=== PATIENT | male | born 1990 | race Caucasian/White ===

== ENCOUNTER → 2016-04-29 | Outpatient (CLI) | payer BC, OTHER ==
[~2016-04-29] MED LIST: IBUP-1050 PO; MULT-506 PO
--- NOTE | 2016-04-29 15:26 | DIAGNOSTIC IMAGING REPORT ---
LUMBAR SPINE MIN 4 VIEWS CLINICAL HISTORY: Low back pain. COMPARISON STUDY: No previous studies for comparison. FINDINGS: There is a transitional vertebra present. No fractures or subluxations are visualized. There are degenerative changes most pronounced at the thoracoabdominal junction. There is a mild S-shaped spinal curvature. IMPRESSION: 1. No fractures or subluxations identified 2. Mild degenerative changes 3. Transitional vertebra Electronically signed by: Reece Suárez M.D. 04/29/2016 3:24 PM Dictated Date/Time: 04/29/2016 3:23 PM
== END | disposition home or self-care (01) ==
LOC: C.RDSM 13:20
PROVIDERS: ATTEND Family Medicine
DX: M54.5 Low back pain (principal); M43.8X6 Other specified deforming dorsopathies, lumbar region

== ENCOUNTER 2016-09-29 17:16 | Emergency (ER) | payer BC ==
[~2016-09-29] VITALS: Ht 175.3 cm; Wt 88.3 kg
[2016-09-29 17:19] VITALS: Ht 175.3 cm; Wt 88.3 kg
[2016-09-29] MEDS ORDERED: SODIUM CHLORIDE 0.9% 1000ML 1,000 ML IV STA (17:32)
[2016-09-29] MEDS ORDERED: KETOROLAC TROMETHAMINE 30 MG/ML VIAL IV STA (17:32)
--- NOTE | 2016-09-29 17:32 | EMERGENCY ROOM VISIT NOTE ---
History Report prepared by Rd: Elian Blevins Under the Supervision of: Dr. Norman Marshall M.D. First contact with patient: 17:22 Chief Complaint: ILLNESS Stated Complaint: FEVER,CHILLS,SOB,[place] History of Present Illness The patient is a 25 year old male who presents to the Emergency Room with complaints of intermittent fevers for the past three days. The patient started to feel fatigued one week ago and has been sleeping more than usual. Three days ago the fevers started as well as chills, shortness of breath, and cervical lymphadenopathy. He denies sore throat, cough, or unusual rashes. The patient is able to swallow his secretions. The patient has never had mono before. He has no significant past medical history. Source of History: patient Onset: three days ago Position: other (global) Quality: other (febrile) Timing: intermittent Associated Symptoms: + chills, + SOB, + fatigue, + lymphadenopathy, No sorethroat, No cough, No rash Review of Systems See HPI for pertinent positives & negatives. A total of 10 systems reviewed and were otherwise negative. Past Medical & Surgical Medical Problems: (1) No known health problems Family History Diabetes mellitus Hypertension Social History Smoking Status: Never Smoker Occupation Status: employed Current/Historical Medications Scheduled Ibuprofen (Advil), 400 MG PO BID Multivitamin (Multivitamin), 1 TAB PO DAILY Allergies Coded Allergies: No Known Allergies (Unverified , 09/29/16) Physical Exam Vital Signs Date Time Temp Pulse Resp B/P (MAP) Pulse Ox O2 Delivery O2 Flow Rate FiO2 09/29/16 19:29 37.5 83 19 120/73 97 09/29/16 19:19 37.5 09/29/16 19:16 83 19 97 09/29/16 19:01 120/73 09/29/16 18:46 86 21 98 09/29/16 18:31 112/68 09/29/16 18:30 86 09/29/16 18:27 95 Room Air 09/29/16 18:26 129/68 09/29/16 17:19 38.9 118 20 138/84 96 Room Air Physical Exam GENERAL: Patient is a healthy-appearing well-nourished male HEAD: Normocephalic atraumatic EYES: Ocular movements intact pupils equal and react to light OROPHARYNX Patient is able to swallow his own saliva. Mild bilateral tonsillar swelling. NECK: Supple no nuchal rigidity. No evidence of meningitis or encephalitis. CHEST: Good equal expansion LUNGS: Clear and equal to auscultation CARDIAC: Normal S1 and S2 ABDOMEN: Soft nontender no guarding BACK: No CVA tenderness EXTREMITIES: No pain upon palpation normal muscle strength in all groups no clubbing cyanosis or edema NEURO: Patient is following commands and answering questions appropriately. Alert and oriented x3 Cranial Nerves 2-12 grossly intact Medical Decision & Procedures ER Provider Diagnostic Interpretation: X-ray results as stated below per interpretation by me and the radiologist: CHEST ONE VIEW PORTABLE HISTORY: Pt c/o fever COMPARISON: None. FINDINGS: The lungs are clear. Cardiac silhouette is normal in size. No pleural effusions. No pneumothorax. IMPRESSION: No acute process. Electronically signed by: Keven Darden M.D. 09/29/2016 6:00 PM Dictated Date/Time: 09/29/2016 5:59 PM Laboratory Results 09/29/16 17:59 Red Blood Count 5.10, Mean Corpuscular Volume 85.9, Mean Corpuscular Hemoglobin 29.6, Mean Corpuscular Hemoglobin Concent 34.5, Mean Platelet Volume 9.8, Neutrophils (%) (Auto) 66.6, Lymphocytes (%) (Auto) 22.5, Monocytes (%) (Auto) 8.7, Eosinophils (%) (Auto) 0.8, Basophils (%) (Auto) 1.4, Neutrophils # (Auto) 3.44, Lymphocytes # (Auto) 1.16, Monocytes # (Auto) 0.45, Eosinophils # (Auto) 0.04, Basophils # (Auto) 0.07 09/29/16 17:59 Test 09/29/16 17:50 09/29/16 17:59 09/29/16 18:10 Influenza Type A (RT-PCR) Neg for Influ A (NEG) Influenza Type A Antigen Neg for Influ A (NEG) Influenza Type B Antigen Neg for Influ B (NEG) Influenza Type B (RT-PCR) Neg for Influ B (NEG) White Blood Count 5.16 K/uL (4.8-10.8) Red Blood Count 5.10 M/uL (4.7-6.1) Hemoglobin 15.1 g/dL (14.0-18.0) Hematocrit 43.8 % (42-52) Mean Corpuscular Volume 85.9 fL (80-100) Mean Corpuscular Hemoglobin 29.6 pg (25-34) Mean Corpuscular Hemoglobin Concent 34.5 g/dl (32-36) Platelet Count 143 K/uL (130-400) Mean Platelet Volume 9.8 fL (7.4-10.4) Neutrophils (%) (Auto) 66.6 % Lymphocytes (%) (Auto) 22.5 % Monocytes (%) (Auto) 8.7 % Eosinophils (%) (Auto) 0.8 % Basophils (%) (Auto) 1.4 % Neutrophils # (Auto) 3.44 K/uL (1.4-6.5) Lymphocytes # (Auto) 1.16 K/uL (1.2-3.4) Monocytes # (Auto) 0.45 K/uL (0.11-0.59) Eosinophils # (Auto) 0.04 K/uL (0-0.5) Basophils # (Auto) 0.07 K/uL (0-0.2) RDW Standard Deviation 38.8 fL (36.4-46.3) RDW Coefficient of Variation 12.2 % (11.5-14.5) Immature Granulocyte % (Auto) 0.0 % Immature Granulocyte # (Auto) 0.00 K/uL (0.00-0.02) Anion Gap 9.0 mmol/L (3-11) Est Creatinine Clear Calc Drug Dose 125.8 ml/min Estimated GFR () 123.5 Estimated GFR (Non- 106.6 BUN/Creatinine Ratio 12.5 (10-20) Calcium Level 8.4 mg/dl (8.5-10.1) Total Bilirubin 0.4 mg/dl (0.2-1) Direct Bilirubin 0.1 mg/dl (0-0.2) Aspartate Amino Transf (AST/SGOT) 21 U/L (15-37) Alanine Aminotransferase (ALT/SGPT) 37 U/L (12-78) Alkaline Phosphatase 76 U/L (45-117) Total Protein 6.8 gm/dl (6.4-8.2) Albumin 3.4 gm/dl (3.4-5.0) Lyme Disease IgG Antibody NEG (NEG) Lyme Disease IgM Antibody NEG (NEG) Monoscreen POS (NEG) Urine Color DK YELLOW Urine Appearance CLEAR (CLEAR) Urine pH 6.0 (4.5-7.5) Urine Specific [place] 1.032 (1.000-1.030) Urine Protein 1+ (NEG) Urine Glucose (UA) NEG (NEG) Urine Ketones TRACE (NEG) Urine Occult Blood NEG (NEG) Urine Nitrite NEG (NEG) Urine Bilirubin NEG (NEG) Urine Urobilinogen NEG (NEG) Urine Leukocyte Esterase NEG (NEG) Urine WBC (Auto) 1-5 /hpf (0-5) Urine RBC (Auto) 0-4 /hpf (0-4) Urine Hyaline Casts (Auto) 1-5 /lpf (0-5) Urine Epithelial Cells (Auto) 10-20 /lpf (0-5) Urine Bacteria (Auto) NEG (NEG) Labs reviewed by ED physician. Medications Administered Medications (Trade) Dose Ordered Sig/Judy Route Start Time Stop Time Status Last Admin Dose Admin Sodium Chloride 1,000 ml @ 999 mls/hr Q1H1M STAT IV 09/29/16 17:32 09/29/16 18:32 DC 09/29/16 18:10 999 MLS/HR Ketorolac Tromethamine (Toradol Inj) 30 mg NOW STAT IV 09/29/16 17:32 09/29/16 17:41 DC 09/29/16 18:10 30 MG Acetaminophen (Tylenol Tab) 1,000 mg NOW STAT PO 09/29/16 18:49 09/29/16 18:50 DC 09/29/16 19:20 1,000 MG ED Course 1730: Past medical records reviewed. The patient was evaluated in room B8. A complete history and physical examination was performed. 1732: Toradol 30 mg IV, NSS 1000 ml @ 999 mls/hr. 1849: Tylenol 1000 mg PO. 1850: Reassessed the patient. Discussed the findings with him. He verbalized understanding of the discharge instructions. The patient is ready for discharge. Medical Decision Differential diagnosis: Etiologies such as viral syndrome, tonsillitis, streptococcal pharyngitis, mononucleosis, peritonsillar abscess, retropharyngeal abscess, otitis, pneumonia , influenza, as well as others were entertained. Blood Pressure Screening: Patient was found to have an elevated blood pressure and was referred to their primary care doctor for recheck and further treatment Medication Reconciliation: I attest that I have personally reviewed the patient' s current medication list This is a 25-year-old male who presents emergency Department with 7 days of fever. The patient is well appearance and is able swallow his own saliva. His laboratory work is concerning for acute mononucleosis he does not have an elevation in his white blood cell count. An IV was established, patient given normal saline bolus, Toradol. Repeat examination revealed improvement patient' s symptoms. I do believe that the patient as well as to be discharged home however I recommended no contact sports and to return to the emergency department if he develops severe abdominal pain. I recommended the patient take Tylenol ibuprofen and increase his fluid intake over the next 48 hours. Patient was in agreement with the treatment plan. Impression Primary Impression: Mononucleosis Scribe Attestation The scribe's documentation has been prepared under my direction and personally reviewed by me in its entirety. I confirm that the note above accurately reflects all work, treatment, procedures, and medical decision making performed by me. Departure Information Dispostion Home / Self-Care Referrals No Doctor, Assigned (PCP) Forms HOME CARE DOCUMENTATION FORM, IMPORTANT VISIT INFORMATION, WORK / SCHOOL INSTRUCTIONS Patient Instructions ED Mononucleosis, Hypertension Dc, [facility] Additional Instructions Increase fluids next 48 hours You were found to have an elevated blood pressure today (>120 sytolic or >90 diastolic). Per medicare guidelines, you need to follow up with this blood pressure screening with your Primary Care Physician (PCP). For a new PCP call [phone]. Take 600 mg Ibuprofen every 6 hours Take 1000 Mg Tylenol every 6 hours Culture results are usually available in approx 48 hours You have been examined and treated today on an emergency basis only. This is not a substitute for, or an effort to provide, complete comprehensive medical care. It is impossible to recognize and treat all injuries or illnesses in a single emergency department visit. It is therefore important that you follow up closely with your PCP. Call as soon as possible for an appointment. Thank you for your time and consideration. I look forward to speaking with you again soon. Please don't hesitate to call us if you have any questions.
--- NOTE | 2016-09-29 18:02 | DIAGNOSTIC IMAGING REPORT ---
CHEST ONE VIEW PORTABLE HISTORY: Pt c/o fever COMPARISON: None. FINDINGS: The lungs are clear. Cardiac silhouette is normal in size. No pleural effusions. No pneumothorax. IMPRESSION: No acute process. Electronically signed by: Keven Darden M.D. 09/29/2016 6:00 PM Dictated Date/Time: 09/29/2016 5:59 PM
[2016-09-29 18:17] LABS: HEMATOCRIT 43.8 % (42-52); MEAN CELL VOLUME 85.9 fL (80-100); MEAN CORPUSCULAR HEMOGLOBIN 29.6 pg (25-34); MEAN CORPUSCULAR HGB CONC 34.5 g/dl (32-36); MEAN PLATELET VOLUME 9.8 fL (7.4-10.4); PLATELET COUNT 143 K/uL (130-400); WHITE BLOOD COUNT 5.16 K/uL (4.8-10.8)
[2016-09-29 18:27] VITALS: O2SAT 95
[2016-09-29] MEDS ORDERED: MULT-506 PO (18:27)
[2016-09-29 18:28] LABS: MANUAL MICROSCOPIC REQUIRED? NO; REVIEW REQ? NO; URINE APPEARANCE CLEAR (CLEAR); URINE BILIRUBIN NEG (NEG); URINE COLOR DK YELLOW; URINE NITRITE NEG (NEG); URINE SPECIFIC GRAVITY 1.032 (1.000-1.030); UROBILINOGEN NEG (NEG)
[2016-09-29] MEDS ORDERED: IBUP-1050 PO (18:28)
[2016-09-29 18:37] LABS: BASO % 1.4 %; BASO ABS # 0.07 K/uL (0-0.2); COMPLETE YES; EOS % 0.8 %; LYMPH % 22.5 %; LYMPH ABS # 1.16 K/uL (1.2-3.4); MONO % 8.7 %; NEUT % 66.6 %
[2016-09-29] MEDS ORDERED: ACETAMINOPHEN 500 MG TAB PO STA (18:49)
[2016-09-29 18:50] LABS: BUN/CREATININE RATIO 12.5 (10-20); CALCIUM 8.4 mg/dl (8.5-10.1); CREATININE 0.97 mg/dl (0.60-1.40); POTASSIUM 3.4 mmol/L (3.5-5.1)
[2016-09-29 19:10] LABS: LYME DISEASE AB IGG NEG (NEG); LYME DISEASE AB IGM NEG (NEG)
[2016-09-29 19:29] VITALS: BP 120/73; PULSE 83; TEMP 37.5; O2SAT 97
[2016-09-29 19:58] LABS: INFLUENZA A PCR Neg for Influ A (NEG); INFLUENZA B PCR Neg for Influ B (NEG)
== END 2016-09-29 19:30 | disposition home or self-care (01) ==
LOC: C.EDB 17:17
DX: B27.90 Infectious mononucleosis, unspecified without complication (principal); Z83.3 Family history of diabetes mellitus; Z82.49 Family history of ischemic heart disease and other diseases of the circulatory system